=== PATIENT | female | born 1990 | race Caucasian/White ===

== ENCOUNTER 2023-05-13 09:25 | Emergency (ER) | payer OTHER, SELFPAY ==
[2023-05-13 09:28] VITALS: BP 117/52; PULSE 57; RESP 20; TEMP 36.1; O2SAT 100; BMI 34.7
--- NOTE | 2023-05-13 10:53 | ED_ITS ---
HPI - Animal Bite General Chief Complaint: Animal Bite Stated Complaint: Dog bite Time Seen by Provider: 05/13/23 09:59 Source: patient and RN notes reviewed Mode of arrival: ambulatory Limitations: no limitations History of Present Illness HPI narrative: This is a 32-year-old female presenting to the emergency department with complaints of dog bite which occurred yesterday. 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 Patient reports that she is unsure of the status of this dogs box seen history. She states that the optometrist president/practice owner of the dog grabbed the dog after it bit her in red to the house. Patient attempted to get more information from this person however she refused. She is actively working with animal control in order to determine dog's vaccination status. Patient denies any fevers, chills, chest pain, shortness of breath, abdominal pain, nausea, vomiting, or diarrhea. No other complaints or concerns at this time. MD complaint: animal bite Animal: dog Mechanism: bite Associated symptoms: none Related Data Patient tetanus UTD: No Previous Rx's Medication Instructions Recorded amoxicillin 875 mg-potassium 1 tab PO BID 5 days #9 tabs 05/13/23 clavulanate 125 mg tablet Allergies Allergy/AdvReac Type Severity Reaction Status Date / Time acetaminophen [From TYLENOL] Allergy Unknown STOMACH Verified 05/13/23 09:34 PAIN Review of Systems Review of Systems: Yes all other systems are reviewed and are negative Constitutional: Constitutional: Reports as per [facility] Social History Social History Advance Directives: No Advance Directives Information Provided: No Physical Exam ED Vital Signs: Vital Signs - 24 hr 05/13/23 09:28 Temperature 97.0 F Pulse Rate 57 Respiratory Rate 20 Blood Pressure 117/52 L Pulse Oximetry 100 Oxygen Delivery Method Room Air BMI result Body Mass Index 34.7 Const General: cooperative, comfortable and no acute distress Orientation/consciousness: patient oriented x3 Limitations: no limitations HENMT Head: Yes normal to inspection, Yes normocephalic and Yes atraumatic Ears: hearing grossly normal bilaterally General nose exam: Normal external nose present Face and sinus: Yes normal facial exam Mouth: Normal oral and palatal mucosa present, oropharynx normal and moist mucous membranes Throat: Yes posterior oropharynx normal Eyes General: appearance normal, both eyes and all related structures Eyelids: Yes eyelids normal Conjunctivae: conjunctivae normal Sclerae: sclerae normal Pupils: Equal, round and reactive pupils present EOM: EOMs intact bilaterally Neck Neck: Yes normal visual inspection, Yes full ROM and Yes no lymphadenopathy Lymphatic: no lymphadenopathy noted Chest Chest palpation & inspection: normal inspection of the chest Resp Effort & Inspection: normal respiratory effort and able to speak in complete sentences Auscultation: clear to auscultation bilaterally, no crackles, no rales, no rhonchi and no wheezes Cardio Rate: regular rate Rhythm: regular rhythm Heart sounds: S1 normal heart sound present and S2 normal heart sound present GI Inspection: Yes normal to inspection Skin Other: Right anterior read with 1 mm puncture wound, no active bleeding, mild tenderness palpation surrounding wound. No surrounding erythema, edema, increased warmth, or induration. General skin exam: no rashes or lesions noted Trauma: no lacerations or abrasions Wounds: no wounds Neuro General: patient oriented x3 and moves all extremities Cranial nerves: Yes Equal, round and reactive pupils present Extrem General: Yes normal to inspection Right upper extremity: normal to inspection Left upper extremity: normal to inspection Right lower extremity: normal to inspection Left lower extremity: normal to inspection Medications Administered Discontinued Medications Generic Name Dose Route Start Last Admin Trade Name Freq PRN Reason Stop Dose Admin Amoxicillin/Clavulanate Potassium 875 mg 05/13/23 10:58 05/13/23 11:20 Amoxicillin/Potassium Clav 875 Mg Tablet PO 05/13/23 10:59 875 mg ONCE ONE Administration Diphtheria/Tetanus/Acell Pertussis 0.5 ml 05/13/23 10:53 05/13/23 11:20 Diphth,Pertus(Acell),Tet Adult 0.5 Ml Syringe IM 05/13/23 10:54 0.5 ml .ONCE ONE Administration Medical Decision Making Medical Decision Making MDM Narrative: 32-year-old female presenting to the emergency department with complaints of dog bite which occurred yesterday. 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 She is unsure what the vaccination status of the dog is. She is actively working with animal control in order to determine whether not dog was up-to-date with immunizations. Given unknown vaccinations status, patient only urged patient to get rabies series, tetanus shot (as hers was greater than 10 years ago), and start her on antibiotics. Patient reports that she would like to get her tetanus and antibiotics but is deferring rabies vaccinations today. She would like to wait until she hears back from animal control. I strongly urged patient that this is against medical advice given that patient should be vaccinated against rabies as this is a life-threatening disease if she contracted it. Patient understands the risks associated with not receiving rabies vaccines and would like to continue to defer until she hears back from animal control. Patient is fully congitively intact in is able to make these medical decisions on her behalf. Patient reports that she will turn back to the ER for rabies series if needed. Advised patient to keep wound clean and dry. Watch for any signs of infection, patient given tetanus as well as 1st dose of Augmentin in the department today. Differential Diagnosis Differential Diagnoses: The differential diagnosis associated with the presentation includes Puncture wound, dog bite, cellulitis, rabies exposure Admission/Observation Consideration of admission/observation: Escalation of care including admission/observation considered Lab Data MDM Lab Attestation statement: I reviewed the patient's lab results. Radiology Impression Discussion of test interpretation with radiology: I have reviewed the radiologist's reading. External Record Review External record reviewed: Inpatient record, Office record, Outpatient record, Prior outpatient labs, Prior outpatient radiology, Primary care record and Outside ED record Discharge Plan Discharge Clinical Impression: Dog bite Patient Disposition: Home, Self-Care Instructions: Animal Bite (ED), Rabies (ED) Additional Instructions: You are refusing the rabies vaccination and series which is against medical advice. Your received your tetanus shot today as well as 1st dose of Augmentin. Please continue antibiotic as directed, finish the entire course even if your feeling better. Keep wound clean and dry. Watch for any signs of infection including but not limited to redness, swelling, or drainage from the region. Follow-up with your primary care physician. If any new or worsening symptoms occur including but not limited to headaches, fevers, chills, chest pain, shortness of breath, please return for re- evaluation. Prescriptions: New amoxicillin-pot clavulanate 875-125 mg tablet 1 tab PO BID 5 Days Qty: 9 0RF Interventions: ED Discharge Assessment Last Done: 05/13/23 11:39 Discharge Date/Time: 05/13/23 11:42
[2023-05-13] MEDS: Diphth,Pertus(ACell),Tet Adult 0.5 ML SYRINGE IM (11:20)
[2023-05-13] MEDS: Amoxicillin/Potassium Clav 875 MG TABLET PO (11:20)
== END 2023-05-13 11:42 | disposition home or self-care (01) ==
PROVIDERS: Emergency Provider Emergency Medicine
DX: S81.851A Open bite, right lower leg, initial encounter (principal); W54.0XXA Bitten by dog, initial encounter; Y93.9 Activity, unspecified; Y92.9 Unspecified place or not applicable; Y99.9 Unspecified external cause status; Z23 Encounter for immunization
CPT/HCPCS: 90471; 90715; 99283; 99284

== ENCOUNTER 2023-06-03 10:33 | Emergency (ER) | payer OTHER, SELFPAY ==
[2023-06-03 10:38] VITALS: BP 128/77; PULSE 69; RESP 18; TEMP 36.7; O2SAT 94; BMI 31.9
--- NOTE | 2023-06-03 11:01 | ED.ANIMALBIT ---
HPI - Animal Bite General Chief Complaint: Animal Bite Stated Complaint: Dog bite 06/02 L arm Time Seen by Provider: 06/03/23 10:46 Source: patient Mode of arrival: ambulatory Limitations: no limitations History of Present Illness HPI narrative: Patient is a 32-year-old female presenting to the emergency department with dog bite to left posterior upper arm. 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 Reports area was bleeding initially, none now. Denies any other injury or trauma. Reports tetanus was recently updated 2-3 weeks ago in this ED. Has paperwork from the dog optometrist president/practice owner showing dog is UTD on rabies vaccination. complaint: animal bite Onset (ago): hour(s) Animal: dog Description of animal: household pet, immunizations UTD and appeared well Mechanism: bite Location: other (left upper arm) Location - Extremities: left: arm Pain description: dull Context: unprovoked Associated symptoms: none Related Data Previous Rx's Medication Instructions Recorded amoxicillin 875 mg-potassium 1 tab PO BID 5 days #9 tabs 05/13/23 clavulanate 125 mg tablet amoxicillin 875 mg-potassium 1 tab PO BID #10 tabs 06/03/23 clavulanate 125 mg tablet Allergies Allergy/AdvReac Type Severity Reaction Status Date / Time acetaminophen [From TYLENOL] Allergy Unknown STOMACH Verified 06/03/23 10:42 PAIN Review of Systems Review of Systems: As per HPI. Yes all other systems are reviewed and are negative Constitutional: Constitutional: Reports as per HPI [facility] Social History Social History Advance Directives: No Advance Directives Information Provided: No Physical Exam ED Vital Signs: Vital Signs - 24 hr 06/03/23 10:38 Temperature 98.1 F Pulse Rate 69 Respiratory Rate 18 Blood Pressure 128/77 Pulse Oximetry 94 Oxygen Delivery Method Room Air BMI result Body Mass Index 31.9 Vital signs have been reviewed and appear to be correct. Blood pressure normal. Heart rate normal. Respiratory rate normal. Temperature normal. Oxygen saturation normal. Const General: cooperative, healthy appearing and no acute distress Orientation/consciousness: oriented to person, oriented to place, oriented to time and patient oriented x3 Limitations: no limitations HENMT Head: Yes normocephalic and Yes atraumatic Ears: external ears normal General nose exam: Normal external nose present Face and sinus: Yes face symmetric Mouth: oropharynx normal and moist mucous membranes Throat: Yes uvula midline Eyes Pupils: Equal, round and reactive pupils present Neck Neck: Yes normal visual inspection and Yes supple Resp Effort & Inspection: normal respiratory effort and able to speak in complete sentences Auscultation: clear to auscultation bilaterally Cardio Rate: regular rate Rhythm: regular rhythm Heart sounds: S1 normal heart sound present and S2 normal heart sound present GI Palpation (GI): Soft to palpation and nontender Auscultation: normoactive bowel sounds General: Yes no CVA tenderness Back/Spine/Pelvis Back: no CVA tenderness Skin General skin exam: elasticity normal and turgor normal Neuro General: oriented to person, oriented to place, oriented to time, patient oriented x3, moves all extremities, no focal motor deficits and CN's II-XI intact bilaterally Cranial nerves: Yes Equal, round and reactive pupils present Cognition (Neuro): normal cognition Extrem General: Yes full ROM, Yes normal exam except as noted, Yes no pedal edema and Yes no calf tenderness Left upper extremity: full ROM, normal capillary refill and shoulder/upper arm Details: abrasion upper arm mid posterior Details: multiple (one each to superior/inferior aspect of bruise) and ecchymosis upper arm mid posterior Details: single Psych Mental Status: mental status grossly normal Affect: normal affect Thought process: Normal thought process present Medical Decision Making Medical Decision Making MDM Narrative: Patient is a 32-year-old female presenting to the emergency department with dog bite to left posterior upper arm. On exam patient is awake, A+Ox3, VS WNL, afebrile, normal neurological exam without focal deficits, large area of ecchymosis to posterior left upper arm with superficial abrasions to superior and inferior aspects of bruise. Given reported symptoms and physical exam findings, initial differential includes animal bite, contusion, cellulitis. Given that dog is UTD on rabies vaccine and able to be monitored, rabies vaccine and immunoglobulin not indicated at this time. Tetanus is UTD. Animal control reporting forms completed. Will prescribe course of Augmentin. Patient advised to monitor the area daily for any signs of infection and return if this occurs. Plan discussed with patient and all questions answered. Return precautions discussed at bedside. Patient verbalized understanding of and agreement with plan. Differential Diagnosis Differential Diagnoses: The differential diagnosis associated with the presentation includes As per MDM. External Record Review External record reviewed: Inpatient record, Office record and Outpatient record Prescription Management I considered prescription management with: Antibiotic Discharge Plan Discharge Clinical Impression: Dog bite Patient Disposition: Home, Self-Care Instructions: Animal Bite (ED) Additional Instructions: You were evaluated in the emergency department today for a dog bite. Please keep the area surrounding the wounds clean and dry and watch closely for signs of infection. If you develop worsening redness, swelling, pain, thick yellow drainage, streaking of redness up your arm, or fever please return to the emergency department for re-evaluation. You are being prescribed antibiotics, please complete the full course as prescribed. Please follow-up with your primary care provider. Prescriptions: New amoxicillin-pot clavulanate 875-125 mg tablet 1 tab PO BID Qty: 10 0RF No Action amoxicillin-pot clavulanate 875-125 mg tablet 1 tab PO BID 5 Days Qty: 9 0RF
== END 2023-06-03 11:22 | disposition home or self-care (01) ==
PROVIDERS: Emergency Provider Emergency Medicine
DX: S41.152A Open bite of left upper arm, initial encounter (principal); W54.0XXA Bitten by dog, initial encounter; Y93.89 Activity, other specified; Y92.89 Other specified places as the place of occurrence of the external cause; Y99.0 Civilian activity done for income or pay
CPT/HCPCS: 99282; 99283

== ENCOUNTER 2023-10-11 10:16 | Emergency (ER) | payer OTHER, SELFPAY ==
[2023-10-11 11:19] VITALS: BP 129/55; PULSE 73; RESP 16; TEMP 36.6; O2SAT 98; BMI 34.8
--- NOTE | 2023-10-11 11:22 | ED.GENADULT ---
HPI - General Adult General Chief complaint: General Medical Stated complaint: Tingling in arm - dog bite few months ago Source: patient Mode of arrival: ambulatory Limitations: no limitations History of Present Illness HPI narrative: 32 yold female presents to the ED for left posterior arm triceps pain and tingling down to her fingers since being bitten by Dog in May 2023. Patient states no trauma since than. Patient denies any recent arm trauma, leg swelling, redness, ecchymosis, weakness, or numbness. Patient states no chest pain or shortness of breath. Related Data Previous Rx's Medication Instructions Recorded amoxicillin 875 mg-potassium 1 tab PO BID 5 days #9 tabs 05/13/23 clavulanate 125 mg tablet amoxicillin 875 mg-potassium 1 tab PO BID #10 tabs 06/03/23 clavulanate 125 mg tablet Allergies Allergy/AdvReac Type Severity Reaction Status Date / Time acetaminophen [From TYLENOL] Allergy Unknown STOMACH Verified 06/03/23 10:42 PAIN Review of Systems Review of Systems: Left posterior arm/triceps pain since may 2023 due to dog bite. Yes all other systems are reviewed and are negative [facility] Social History Social History Advance Directives: No Advance Directives Information Provided: Yes Physical Exam ED Vital Signs: Vital Signs - 24 hr 10/11/23 11:19 Temperature 97.9 F Pulse Rate 73 Respiratory Rate 16 Blood Pressure 129/55 L Pulse Oximetry 98 Oxygen Delivery Method Room Air BMI result Body Mass Index 34.8 Const General: cooperative, healthy appearing, comfortable, no acute distress, well developed, alert, awake and Physically active Orientation/consciousness: oriented to person, oriented to place, oriented to time and patient oriented x3 HENMT Head: Yes normal to inspection, Yes No palpable skull fracture present, Yes normocephalic, Yes atraumatic and No abrasion Eyes General: appearance normal, both eyes and all related structures Neck Neck: Yes normal visual inspection, Yes full ROM, Yes no lymphadenopathy, Yes no meningeal signs, Yes trachea midline, Yes supple, No anterior neck swelling and No tender Chest Chest palpation & inspection: normal inspection of the chest and normal palpation of entire chest wall Resp Effort & Inspection: normal respiratory effort and able to speak in complete sentences Auscultation: clear to auscultation bilaterally Cardio Jugular venous distension: no JVD Heart sounds: S1 normal heart sound present and S2 normal heart sound present GI Inspection: Yes normal to inspection Palpation (GI): Soft to palpation, not firm, nontender, no guarding and not rigid General: Yes no CVA tenderness Back/Spine/Pelvis Back: no CVA tenderness and No back tenderness Skin General skin exam: no rashes or lesions noted, elasticity normal and turgor normal Neuro General: oriented to person, oriented to place, oriented to time, patient oriented x3, gait normal, tone normal, moves all extremities, Normal light touch and pain sensation, no meningeal signs and no focal motor deficits Extrem General: Yes normal to inspection and Yes full ROM Shoulder/upper arm images: 1. negative for erythema, ecchymosis, rash, deformity, fluctance , swelling, hotness, or coldness. SLight tenderness. Catherine, neuro, and vascular exam is intact. healed dog bites. Psych Appearance: grossly normal, well kempt and not disheveled Course Course Course Narrative: RME: 32 yold female presents to ED for left left triceps with tingling down the arms without any recent trauma. Patient had dog bite about 2 months ago in that area and states has pain on range of motion in the area for like something is talking and tingling. Patient states no redness, swelling, ecchymosis bruising, recent trauma since incident. Patient admits to IV drug use in the arm her last use she states 1 year ago. Symptoms for probably due to dog bite biting ligament muscle or nerve. 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 NIH Score 0. negative for signs of stroke. 11:39: Patient refused labs string check for myocardial infarction. Patient was to do EKG. Patient explained risk of heart issues or any blood pathogen disorders the patient refused labs. Patient's labs was ordered due to IV drug but patient refused. Patient agreeable to ultrasound of left upper extremity. Medical Decision Making Medical Decision Making [facility] Narrative: 32-year-old female presents to ED for left tricep arm pain since being bitten in May of 2023. Patient states tingling going down left arm. Patient feels like pain in her muscle. She denies any redness pus discharge or foul odor. Patient denies any IV drug injection into arm. 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 Patient denies any chest pain or shortness of breath. EKG and labs were ordered due to patient stating left tingling but patient refused labs knowning risk of myocardial infarction masking left arm tingling. Patient was inforemd of , infection due to history of IV drug use, or any other etiology but patient refused labs. Patient discussed return to the ED immediately if symptoms worsen. Negative for signs of stroke. NIH score 0. Patient discussed checking electrolytes as cause of paresthesia but patient still refused. Patient explained worrisome sign informed to come to the ED immediately. Patient educated on follow-up primary care provider referred to Orthopedic for MRI check for muscle injury, tendong, or nerve injury. No need for xray. negative for signs of trauma. Patient to be follow up. US ordered Differential Diagnosis Differential Diagnoses: The differential diagnosis associated with the presentation includes (Muscle pain, DVT, tendon injury.) Admission/Observation Consideration of admission/observation: Escalation of care including admission/observation considered Independent Interpretation I performed an independent interpretation of an: EKG (normal sinus rhythm) and Ultrasound Radiology Impression Discussion of test interpretation with radiology: I have reviewed the radiologist's reading. Discharge Plan Discharge Clinical Impression: Arm pain, left Patient Disposition: Home, Self-Care Instructions: Arm Pain (ED) Additional Instructions: Return to the ED immediately for any swelling, redness, bluish/discoloration of upper extremity, chest pain, shortness of breath, fever, chills, numbness/tingling, slurred speech, facial droop, loss of vision, or any other concerning symptoms. You may need outpatient MRI from your PCP. to check for any muscle tear or tendon injury and left tricep due to dog bite that occurred on May 2023. Prescriptions: No Action amoxicillin-pot clavulanate 875-125 mg tablet 1 tab PO BID 5 Days Qty: 9 0RF amoxicillin-pot clavulanate 875-125 mg tablet 1 tab PO BID Qty: 10 0RF Referrals: [facility] [place] [facility] [Provider Group] (Left posterior triceps pain with tingling and pulling sensation since dog bite. May have muscle injury. May need MRI) Stand Alone Forms: Work/School Release Discharge Date/Time: 10/11/23 14:24 Print Language: Croatian
== END 2023-10-11 14:24 | disposition home or self-care (01) ==
PROVIDERS: Emergency Provider Emergency Medicine
DX: M79.602 Pain in left arm (principal); R20.2 Paresthesia of skin
CPT/HCPCS: 93005; 93971; 99283; 99284

== ENCOUNTER → 2023-10-11 11:23 | Outpatient (BNV) | payer OTHER, SELFPAY | PROVIDERS: Emergency Provider Emergency Medicine; Visit Provider Internal Medicine Cardiovascular Disease | DX: R20.2 Paresthesia of skin (principal) | CPT/HCPCS: 93010 ==

== ENCOUNTER 2024-01-07 12:16 | Emergency (ER) | payer OTHER, SELFPAY ==
[2024-01-07 12:32] VITALS: BP 139/89; PULSE 54; RESP 17; O2SAT 97; BMI 31.4
--- NOTE | 2024-01-07 12:33 | ED_ITS ---
HPI - General Adult General Chief complaint: Nausea/Vomiting/Diarrhea Stated complaint: Fatigue/Dizziness Time Seen by Provider: 01/07/24 19:25 Source: patient Mode of arrival: ambulatory Limitations: no limitations History of Present Illness HPI narrative: Patient is a 33-year-old female presenting to the ED with complaint of nausea, vomiting, and diarrhea since Sunday night, fatigue, fever 100.9 yesterday. Denies abdominal pain. Boyfriend and co-workers are sick with same symptoms. Denies hematochezia or melena. Emesis is non-bloody, non-bilious. MD complaint: nausea, vomiting, diarrhea Onset (ago): day(s) Associated symptoms: denies other symptoms Treatments prior to arrival: none Related Data Previous Rx's Medication Instructions Recorded amoxicillin 875 mg-potassium 1 tab PO BID 5 days #9 tabs 05/13/23 clavulanate 125 mg tablet amoxicillin 875 mg-potassium 1 tab PO BID #10 tabs 06/03/23 clavulanate 125 mg tablet ondansetron 4 mg disintegrating 4 mg PO Q8H PRN nausea and 01/07/24 tablet vomiting #9 tabs Allergies Allergy/AdvReac Type Severity Reaction Status Date / Time acetaminophen [From TYLENOL] Allergy Unknown STOMACH Verified 06/03/23 10:42 PAIN Review of Systems 2 Review of Systems: As per HPI. Yes all other systems are reviewed and are negative Constitutional: Constitutional: Reports as per HPI [facility] Social History Social History Advance Directives: No Advance Directives Information Provided: No Physical Exam ED Vital Signs: Vital Signs - 24 hr 01/07/24 12:32 01/07/24 19:11 Temperature 98.4 F Pulse Rate 54 66 Respiratory Rate 17 18 Blood Pressure 139/89 145/86 H Pulse Oximetry 97 98 Oxygen Delivery Method Room Air Room Air BMI result Body Mass Index 31.4 Vital signs have been reviewed and appear to be correct. Blood pressure normal. Heart rate normal. Respiratory rate normal. Temperature normal. Oxygen saturation normal. Const General: cooperative, healthy appearing and no acute distress Orientation/consciousness: oriented to person, oriented to place, oriented to time and patient oriented x3 Limitations: no limitations HENMT Head: Yes normocephalic and Yes atraumatic Ears: external ears normal General nose exam: Normal external nose present Face and sinus: Yes face symmetric Mouth: oropharynx normal and moist mucous membranes Throat: Yes uvula midline Eyes Pupils: Equal, round and reactive pupils present Neck Neck: Yes normal visual inspection and Yes supple Resp Effort & Inspection: normal respiratory effort and able to speak in complete sentences Auscultation: clear to auscultation bilaterally Cardio Rate: regular rate Rhythm: regular rhythm Heart sounds: S1 normal heart sound present and S2 normal heart sound present GI Palpation (GI): Soft to palpation and nontender Auscultation: normoactive bowel sounds General: Yes no CVA tenderness Back/Spine/Pelvis Back: no CVA tenderness Skin General skin exam: elasticity normal and turgor normal Neuro General: oriented to person, oriented to place, oriented to time, patient oriented x3, moves all extremities, no focal motor deficits and CN's II-XI intact bilaterally Cranial nerves: Yes Equal, round and reactive pupils present Cognition (Neuro): normal cognition Extrem General: Yes full ROM, Yes no pedal edema and Yes no calf tenderness Psych Mental Status: mental status grossly normal Affect: normal affect Thought process: Normal thought process present Medical Decision Making Medical Decision Making MDM Narrative: Patient is a 33-year-old female presenting to the ED with complaint of nausea, vomiting, and diarrhea since Sunday night, fatigue, fever 100.9 yesterday. On exam patient is awake, A+Ox3, VS WNL, afebrile, normal neurological exam without focal deficits, physical exam findings as above. Given reported symptoms and physical exam findings, initial differential includes viral illness, covid, flu, rsv, strep pharyngitis, gastroenteritis. Labs notable for no leukocytosis, no significant electrolyte abnormalities, no evidence of WILL. Viral and strep swabs negative. Patient has been able to tolerate small sips of fluid in the emergency department. Results discussed with patient all questions answered. The patient stable for discharge home at this time. Will prescribe Zofran for nausea and advised patient to progress diet from clear liquids to bland diet back to regular diet. Instructed patient to follow-up with primary care provider. Return precautions discussed at bedside. Patient verbalized understanding of and agreement with plan. Differential Diagnosis Differential Diagnoses: The differential diagnosis associated with the presentation includes As per MDM. Admission/Observation Consideration of admission/observation: Escalation of care including admission/observation considered Patient would have been admitted to the hospital had their work up had any findings where hospital admission was appropriate and their clinical presentation warranted hospital admission. Lab Data [facility] Lab Attestation statement: I reviewed the patient's lab results. As per [facility]. 01/07/24 13:11 01/07/24 13:11 Labs: Lab Results 01/07/24 Range/Units 13:11 WBC 8.5 (4.8-10.8) X10*3/uL RBC 5.44 (4.20-5.50) X10*6/uL Hgb 15.0 (12.0-16.0) g/dl Hct 46.3 (37.0-47.0) % MCV 85.1 (80.0-98.0) fL MCH 27.6 (27.0-33.0) pg MCHC 32.4 (31.0-35.0) g/dl RDW 13.3 (11.0-16.0) % Plt Count 366 (160-400) X10*3/uL MPV 9.4 (9.4-12.3) fL Immature Gran % (Auto) 0.2 (0.0-0.4) % Neut % (Auto) 79.6 H (45-73) % Lymph % (Auto) 13.2 L (20-40) % [place] % (Auto) 5.9 (2-11) % Eos % (Auto) 0.5 (0-4) % Baso % (Auto) 0.6 (0-2) % Lymph # (Auto) 1.1 L (1.2-4.9) X10*3/uL [place] # (Auto) 0.5 (0.1-1.2) X10*3/uL Eos # (Auto) 0.0 (0.0-0.4) X10*3/uL Baso # (Auto) 0.1 (0.0-0.2) X10*3/uL Abs Immat Gran (auto) 0.02 (0.00-0.03) X10*3/uL Absolute Neuts (auto) 6.8 (2.0-8.3) x10*3/uL Absolute Nucleated RBC 0.000 (0.0-0.012) X10*3/uL Nucleated RBC % (auto) 0.0 (0.0-0.2) /100WBC Sodium 136 (135-145) mmol/L Potassium 4.4 (3.3-5.1) mmol/L Chloride 104 (96-108) mmol/L Carbon Dioxide 24 (22-29) mmol/L Anion Gap 12 (12-20) BUN 13 (9-16) mg/dL Creatinine 0.94 (0.5-1.4) mg/dL Estim Creat Clear Calc 83.0 Estimated GFR > 60 Random Glucose 86 (60-115) mg/dL Calcium 10.4 H (8.4-10.2) mg/dL Magnesium 2.3 (1.6-2.6) mg/dL Total Bilirubin 0.9 (0.0-1.0) mg/dL AST 14 (5-31) U/L ALT 8 (0-31) U/L Alkaline Phosphatase 52 (39-117) U/L Total Protein 9.1 H (6.5-8.0) g/dL Albumin 4.7 (3.5-5.0) g/dL Beta HCG, Quant < 2 mIU/mL Influenza Type A (PCR) NEGATIVE (Negative) Influenza Type B (PCR) NEGATIVE (Negative) RSV RNA Qual (PCR) NEGATIVE (Negative) SARS-CoV-2 RNA (RT-PCR) NEGATIVE (Negative) S. pyogenes GrpA MARYAM Negative (Negative) External Record Review External record reviewed: Inpatient record, Office record and Outpatient record Prescription Management I considered prescription management with: Other Discharge Plan Discharge Clinical Impression: Gastroenteritis Patient Disposition: Home, Self-Care Instructions: Gastroenteritis (DC), Acute Nausea and Vomiting (ED), Acute Diarrhea (ED) Additional Instructions: You have been evaluated in the emergency department today for nausea, vomiting, and diarrhea. Your evaluation suggests that your symptoms are most likely due to a viral illness which will improve on it's own with rest and fluids. Remember to drink plenty of fluids at home. You are being prescribed ondansetron which you can use as per the prescription instructions for nausea. Please follow up with your primary care provider within two days. Return to the emergency department if you experience worsening or uncontrolled pain, inability to tolerate fluids by mouth, difficulty breathing, fevers 100.4? F or greater, recurrent vomiting, or any other concerning symptoms. Prescriptions: New ondansetron 4 mg tablet,disintegrating 4 mg PO Q8H PRN (Reason: nausea and vomiting) Qty: 9 0RF No Action amoxicillin-pot clavulanate 875-125 mg tablet 1 tab PO BID 5 Days Qty: 9 0RF amoxicillin-pot clavulanate 875-125 mg tablet 1 tab PO BID Qty: 10 0RF Stand Alone Forms: Work/School Release
[2024-01-07 13:18] LABS: MANUAL DIFF FLAG NO
[2024-01-07 13:20] LABS: Basophils Absolute Auto 0.1 X10*3/uL (0.0-0.2); Basophils Percent Auto 0.6 % (0-2); Eosinophils Percent Auto 0.5 % (0-4); Hematocrit 46.3 % (37.0-47.0); Imm Gran Abs Auto 0.02 X10*3/uL (0.00-0.03); Imm Gran Pct Auto 0.2 % (0.0-0.4); Lymphocytes Absolute Auto 1.1 X10*3/uL (1.2-4.9); Lymphocytes Percent Auto 13.2 % (20-40); Mean Corpuscular HGB Conc 32.4 g/dl (31.0-35.0); Mean Corpuscular Hemoglobin 27.6 pg (27.0-33.0); Mean Corpuscular Volume 85.1 fL (80.0-98.0); Mean Platelet Volume 9.4 fL (9.4-12.3); Monocytes Absolute Auto 0.5 X10*3/uL (0.1-1.2); Monocytes Percent Auto 5.9 % (2-11); Neutrophils Absolute Auto 6.8 x10*3/uL (2.0-8.3); Neutrophils Percent Auto 79.6 % (45-73); Platelet Count 366 X10*3/uL (160-400); Red Blood Count 5.44 X10*6/uL (4.20-5.50); Red Cell Distribution Width 13.3 % (11.0-16.0); White Blood Count 8.5 X10*3/uL (4.8-10.8)
[2024-01-07 13:40] LABS: IDNOW Serial# 08D9AD1C; Strep A Nucleic Acid Negative (Negative)
[2024-01-07 13:56] LABS: Alanine Aminotransferase 8 U/L (0-31); Albumin Level 4.7 g/dL (3.5-5.0); Alkaline Phosphatase 52 U/L (39-117); Anion Gap 12 (12-20); Aspartate Amino Transferase 14 U/L (5-31); Bilirubin Total 0.9 mg/dL (0.0-1.0); Blood Urea Nitrogen 13 mg/dL (9-16); Calcium 10.4 mg/dL (8.4-10.2); Carbon Dioxide 24 mmol/L (22-29); Chloride 104 mmol/L (96-108); Estimated Glomerular Filt Rate > 60; Glucose Random 86 mg/dL (60-115); Magnesium 2.3 mg/dL (1.6-2.6); Potassium 4.4 mmol/L (3.3-5.1); Sodium 136 mmol/L (135-145); Total Protein 9.1 g/dL (6.5-8.0)
[2024-01-07 13:57] LABS: Influenza A PCR NEGATIVE (Negative); Influenza B PCR NEGATIVE (Negative); Resp Syncy Virus RNA Qual PCR NEGATIVE (Negative); SARS COV2 PCR INHOUSE NEGATIVE (Negative)
[2024-01-07 13:59] LABS: HCG Quantitative < 2 mIU/mL
[2024-01-07 19:11] VITALS: BP 145/86; PULSE 66; RESP 18; TEMP 36.9; O2SAT 98
[2024-01-07 19:49] VITALS: BP 145/86; PULSE 66; RESP 18; TEMP 36.9
== END 2024-01-07 19:51 | disposition home or self-care (01) ==
PROVIDERS: Registered Nurse Emergency; Emergency Provider Emergency Medicine Emergency Medical Services
DX: K52.9 Noninfective gastroenteritis and colitis, unspecified (principal); R11.2 Nausea with vomiting, unspecified; Z11.52 Encounter for screening for COVID-19; Z20.822 Contact with and (suspected) exposure to COVID-19; Z79.899 Other long term (current) drug therapy
CPT/HCPCS: 0241U; 80053; 83735; 84702; 85025; 87651; 99282; 99283